=== PATIENT | female | born 1975 | race Two or more races ===

== ENCOUNTER 2024-06-24 05:59 | Inpatient (IN) | payer MEDICAID, OTHER ==
[~2024-06-24] VITALS: Ht 157.5 cm; Wt 78.5 kg
[2024-06-24 06:31] LABS: Urine Bacteria None Seen /hpf (None Seen)
[2024-06-24 06:59] LABS: Urine Blood 3+ /uL (Negative); Urine Clarity Clear (Clear); Urine Protein, UAD Negative (Negative); Urine Specific Gravity 1.015 (1.001-1.035); Urine Urobilinogen Normal (Negative); Urine WBC 1 /hpf (0 - 5)
[2024-06-24 07:02] LABS: Urine Color STRAW (Yellow)
[2024-06-24] MEDS ORDERED: HYDROmorphone HCL 2 MG/ML VL/or syr IV ONE (07:30)
[2024-06-24] MEDS: MORPHINE SULFATE INJ 2 MG/ml SYRG IV ONE (07:42)
[2024-06-24] MEDS: METOCLOPRAMIDE HCL 5MG/ml INJ 2ml VIAL IV ONE (07:42)
[2024-06-24] MEDS: SODIUM CHLORIDE 0.9% 500 ML IVB ONE (07:45)
[2024-06-24 07:47] VITALS: PULSE 63; RESP 16; O2SAT 100
[2024-06-24 07:48] LABS: Basophils # (auto) 0 10 ^3/uL (0-0.2); Basophils % (auto) 0.2 % (0.0-2.0); Eosinophils # (auto) 0 10 ^3/uL (0-0.8); Eosinophils % (auto) 0.1 % (0.0-7.0); Hematocrit 41.1 % (36.0-46.0); Hemoglobin 13.8 g/dL (12.2-16.2); Lymphocytes % (auto) 14.5 % (10.0-50.0); Mean Corpuscular Hemoglobin 28.2 pg (28.0-32.0); Mean Corpuscular Hgb Conc. 33.5 g/dL (32.0-36.0); Mean Corpuscular Volume 84.2 fL (80.0-100.0); Monocytes # (auto) 0.3 10 ^3/uL (0-1.3); Monocytes % (auto) 4.7 % (0.0-12.0); Neutrophils # (auto) 5.8 10 ^3/uL (1.6-8.6); Neutrophils % (auto) 80.5 % (37.0-80.0); Platelet Count (auto) 214 10^3/uL (140-450); Red Blood Cells 4.87 10^6/uL (4.0-5.20); Red Cell Distribution Width 15.6 % (11.8-14.3); White Blood Cell 7.2 10^3/uL (4.4-10.8)
[2024-06-24 09:08] LABS: Alanine Aminotransferase 20 U/L (7-40); Albumin 4.6 g/dL (3.2-4.8); Alkaline Phosphatase 66 U/L (46-116); Anion Gap 7 (5-15); Aspartate Aminotransferase 24 U/L (13-40); BUN/Creatinine Ratio 15.2 (10.0-20.0); Blood Urea Nitrogen 12 mg/dL (9-23); Calcium 9.1 mg/dL (8.7-10.4); Carbon Dioxide 21 mmol/L (20-30); Chloride 110 mmol/L (98-107); Glucose 117 mg/dL (74-106); Magnesium 1.9 mg/dL (1.6-2.6); Potassium 3.8 mmol/L (3.5-5.1); Sodium 138 mmol/L (136-145)
[2024-06-24 09:09] LABS: Total Protein 7.2 g/dL (5.7-8.2)
[2024-06-24 09:10] LABS: Bilirubin, Total 0.4 mg/dL (0.2-1.0)
[2024-06-24] MEDS: KETOROLAC TROMETH 30 MG/ML 1ML VIAL IV ONE (09:10)
[2024-06-24 09:16] LABS: Lipase 2107 U/L (12-53)
[2024-06-24] MEDS: IOHEXOL 300 MG/ML 100ML BOTTLE IJ ONE (10:15)
[2024-06-24] MEDS ORDERED: ONDANSETRON HCL 4 MG/2 ML VIAL IV PRN (14:30)
[2024-06-24] MEDS ORDERED: HYDROmorphone HCL 2 MG/ML VL/or syr IV PRN (14:30)
[2024-06-24] MEDS: LACTATED RINGER'S 1,000 ML IV ONE (15:15)
[2024-06-24 16:30] VITALS: BP 134/84; PULSE 56; RESP 18; TEMP 98.3; O2SAT 99
[2024-06-24] MEDS: HYDROcodone-ACET 5/325MG TAB PO PRN (16:55)
[2024-06-24] MEDS: TAMSULOSIN HYDROCHLORIDE 0.4 MG CAP PO SCH (17:03)
[2024-06-24 17:53] VITALS: PULSE 58; O2SAT 99
[2024-06-24] MEDS: SODIUM CHLOR 0.9% PF (SALINE LOCK) 10ML VIAL/SYR IV SCH (21:13)
[2024-06-24 21:20] VITALS: BP 137/77; PULSE 58; RESP 20; TEMP 98.3; O2SAT 99
[2024-06-24] MEDS: DOCUSATE SOD 100 MG CAP PO PRN (21:22)
[2024-06-25 01:00] VITALS: BP 126/64; PULSE 59; RESP 16; TEMP 98.3; O2SAT 98
[2024-06-25] MEDS: ACETAMINOPHEN 325 MG TAB PO PRN (03:14)
[2024-06-25 05:00] VITALS: BP 133/79; PULSE 51; RESP 17; TEMP 98.6; O2SAT 98
[2024-06-25 07:08] LABS: Basophils # (auto) 0 10 ^3/uL (0-0.2); Basophils % (auto) 0.3 % (0.0-2.0); Eosinophils # (auto) 0 10 ^3/uL (0-0.8); Eosinophils % (auto) 0.7 % (0.0-7.0); Hematocrit 38.4 % (36.0-46.0); Hemoglobin 12.9 g/dL (12.2-16.2); Lymphocytes # (auto) 1.4 10 ^3/uL (0.4-5.4); Lymphocytes % (auto) 40.3 % (10.0-50.0); Mean Corpuscular Hemoglobin 28.1 pg (28.0-32.0); Mean Corpuscular Hgb Conc. 33.6 g/dL (32.0-36.0); Mean Corpuscular Volume 83.7 fL (80.0-100.0); Monocytes # (auto) 0.3 10 ^3/uL (0-1.3); Monocytes % (auto) 7.1 % (0.0-12.0); Neutrophils # (auto) 1.9 10 ^3/uL (1.6-8.6); Neutrophils % (auto) 51.6 % (37.0-80.0); Nucleated Red Blood Cells % 0.2 %; Platelet Count (auto) 182 10^3/uL (140-450); Red Blood Cells 4.59 10^6/uL (4.0-5.20); Red Cell Distribution Width 15.4 % (11.8-14.3); White Blood Cell 3.6 10^3/uL (4.4-10.8)
[2024-06-25 07:25] LABS: Alanine Aminotransferase 16 U/L (7-40); Alkaline Phosphatase 53 U/L (46-116); Anion Gap 7 (5-15); Aspartate Aminotransferase 20 U/L (13-40); BUN/Creatinine Ratio 8.3 (10.0-20.0); Bilirubin, Total 0.8 mg/dL (0.2-1.0); Blood Urea Nitrogen 6 mg/dL (9-23); Carbon Dioxide 23 mmol/L (20-30); Chloride 109 mmol/L (98-107); Glucose 96 mg/dL (74-106); Potassium 3.8 mmol/L (3.5-5.1); Sodium 139 mmol/L (136-145); Total Protein 6.2 g/dL (5.7-8.2)
[2024-06-25 09:00] VITALS: BP 114/72; PULSE 54; RESP 20; TEMP 98.5; O2SAT 98
[2024-06-25] MEDS: ENOXAPARIN SOD 40 MG/0.4 ML SYRINGE SC SCH (10:01)
[2024-06-25 13:00] VITALS: BP 156/92; PULSE 61; RESP 20; TEMP 98.3; O2SAT 98
[2024-06-25] MEDS: SODIUM CHLORIDE 0.9% 1,000 ML IV SCH (13:00)
[2024-06-25 16:59] LABS: Triglycerides 162 mg/dL (< 150)
[2024-06-25 17:00] VITALS: BP 120/84; PULSE 66; RESP 20; TEMP 98.6; O2SAT 97
[2024-06-25 17:00] LABS: LDL Cholesterol 111 mg/dL (< 100)
[2024-06-25 17:01] LABS: Cholesterol 185 mg/dL (< 200); HDL Cholesterol 55 mg/dL (40-59)
[2024-06-25 21:00] VITALS: BP 120/65; PULSE 54; RESP 18; TEMP 98.4; O2SAT 99
[2024-06-26] VITALS (7 sets, daily range): BP systolic 114–158; BP diastolic 66–97; PULSE 55–63; RESP 16–22; TEMP 98.2–98.7; O2SAT 95–98
[2024-06-26 06:20] LABS: Alanine Aminotransferase 16 U/L (7-40); Alkaline Phosphatase 50 U/L (46-116); Anion Gap 10 (5-15); BUN/Creatinine Ratio 7.6 (10.0-20.0); Blood Urea Nitrogen 5 mg/dL (9-23); Calcium 8.8 mg/dL (8.7-10.4); Carbon Dioxide 20 mmol/L (20-30); Chloride 111 mmol/L (98-107); Glucose 88 mg/dL (74-106); Potassium 3.7 mmol/L (3.5-5.1); Sodium 141 mmol/L (136-145)
[2024-06-26 06:21] LABS: Albumin 3.8 g/dL (3.2-4.8); Aspartate Aminotransferase 19 U/L (13-40)
[2024-06-26 06:22] LABS: Bilirubin, Total 0.7 mg/dL (0.2-1.0); Total Protein 5.9 g/dL (5.7-8.2)
[2024-06-26 06:46] LABS: Basophils # (auto) 0 10 ^3/uL (0-0.2); Basophils % (auto) 0.2 % (0.0-2.0); Eosinophils # (auto) 0 10 ^3/uL (0-0.8); Eosinophils % (auto) 0.8 % (0.0-7.0); Hematocrit 37.9 % (36.0-46.0); Hemoglobin 12.8 g/dL (12.2-16.2); Lymphocytes # (auto) 1.7 10 ^3/uL (0.4-5.4); Lymphocytes % (auto) 46.8 % (10.0-50.0); Mean Corpuscular Hemoglobin 28.1 pg (28.0-32.0); Mean Corpuscular Hgb Conc. 33.7 g/dL (32.0-36.0); Mean Corpuscular Volume 83.4 fL (80.0-100.0); Monocytes # (auto) 0.3 10 ^3/uL (0-1.3); Monocytes % (auto) 7.1 % (0.0-12.0); Neutrophils # (auto) 1.7 10 ^3/uL (1.6-8.6); Neutrophils % (auto) 45.1 % (37.0-80.0); Nucleated Red Blood Cells % 0.2 %; Platelet Count (auto) 180 10^3/uL (140-450); Red Blood Cells 4.55 10^6/uL (4.0-5.20); Red Cell Distribution Width 15.6 % (11.8-14.3); White Blood Cell 3.7 10^3/uL (4.4-10.8)
[2024-06-27] VITALS (8 sets, daily range): BP systolic 130–149; BP diastolic 78–86; PULSE 54–60; RESP 16–20; TEMP 37.1; O2SAT 96–98
[2024-06-27 06:34] LABS: Basophils # (auto) 0 10 ^3/uL (0-0.2); Basophils % (auto) 0.3 % (0.0-2.0); Eosinophils # (auto) 0 10 ^3/uL (0-0.8); Eosinophils % (auto) 1.2 % (0.0-7.0); Hematocrit 39.9 % (36.0-46.0); Lymphocytes # (auto) 1.8 10 ^3/uL (0.4-5.4); Lymphocytes % (auto) 45.7 % (10.0-50.0); Mean Corpuscular Hemoglobin 29.2 pg (28.0-32.0); Mean Corpuscular Volume 83.5 fL (80.0-100.0); Monocytes # (auto) 0.3 10 ^3/uL (0-1.3); Monocytes % (auto) 8.2 % (0.0-12.0); Neutrophils # (auto) 1.8 10 ^3/uL (1.6-8.6); Neutrophils % (auto) 44.6 % (37.0-80.0); Nucleated Red Blood Cells % 0.1 %; Platelet Count (auto) 200 10^3/uL (140-450); Red Blood Cells 4.78 10^6/uL (4.0-5.20); Red Cell Distribution Width 15.6 % (11.8-14.3)
[2024-06-27 06:54] LABS: Alanine Aminotransferase 21 U/L (7-40); Albumin 4.1 g/dL (3.2-4.8); Alkaline Phosphatase 54 U/L (46-116); Anion Gap 10 (5-15); Aspartate Aminotransferase 21 U/L (13-40); Calcium 9.5 mg/dL (8.7-10.4); Carbon Dioxide 20 mmol/L (20-30); Chloride 111 mmol/L (98-107); Glucose 93 mg/dL (74-106); Magnesium 1.9 mg/dL (1.6-2.6); Potassium 3.7 mmol/L (3.5-5.1); Sodium 141 mmol/L (136-145)
[2024-06-27 06:55] LABS: Bilirubin, Total 0.8 mg/dL (0.2-1.0); Total Protein 6.4 g/dL (5.7-8.2)
[2024-06-27 06:58] LABS: BUN/Creatinine Ratio 7.2 (10.0-20.0); Blood Urea Nitrogen < 5 mg/dL (9-23)
[2024-06-27 07:19] LABS: Lipase 48 U/L (12-53)
== END 2024-06-27 18:53 | disposition home or self-care (01) | DRG 282 ==
LOC: ER 05:59 → OVERFLOW 14:19 → CENTRAL 16:05
PROVIDERS: ADMIT Internal Medicine; ATTEND Emergency Medicine
DX: K85.90 Acute pancreatitis without necrosis or infection, unspecified (principal); K76.0 Fatty (change of) liver, not elsewhere classified; D64.9 Anemia, unspecified; N20.0 Calculus of kidney; K59.01 Slow transit constipation; E78.1 Pure hyperglyceridemia; F17.200 Nicotine dependence, unspecified, uncomplicated; E87.6 Hypokalemia; K76.89 Other specified diseases of liver; E66.9 Obesity, unspecified; Z71.6 Tobacco abuse counseling; Z68.31 Body mass index [BMI] 31.0-31.9, adult; Z98.891 History of uterine scar from previous surgery
CPT/HCPCS: 36415; 71046; 74177; 76700; 80053; 80061; 81001; 83690; 83735; 84702; 85025; G0378; J1885